=== PATIENT | female | born 2000 | race Caucasian/White ===

== ENCOUNTER 2019-08-11 11:56 | Emergency (ER) | payer SELFPAY ==
[2019-08-11 12:09] VITALS: BP 119/72; PULSE 81; RESP 14; TEMP 37.1; O2SAT 100
--- NOTE | 2019-08-11 12:19 | ED.URI ---
HPI - URI/Sore Throat General Chief Complaint: Upper Respiratory Infection Stated Complaint: Cough/chest congestion Time Seen by Provider: 08/11/19 12:19 Source: patient and RN notes reviewed History of Present Illness HPI Narrative: Patient is a 19-year-old female that presents the urgent care with complaints of cough and congestion for 3-1/2 weeks. Patient states that she initially did use [id number] medication after she was seen on July 19. Patient states she only used it for approximately 1 week and did not have any improvements of symptoms. Patient states she now has some intermittent shortness of breath with cough, left ear pain and runny nose. Denies of any known fever. Denies of fever, chills, nausea, vomiting. No other acute complaints. No acute distress noted. Patient read the plan of care. Related Data Allergies Allergy/AdvReac Type Severity Reaction Status Date / Time No Known Allergies Allergy Verified 08/11/19 12:16 Review of Systems Review of Systems: Narrative: CONSTITUTIONAL: Denies fever, chills, or sweats. EYES: Denies visual changes, redness, or discharge. ENT: Reports of rhinorrhea, congestion, postnasal drainage CARDIOVASCULAR: Denies chest pain, palpitations, or edema. RESPIRATORY: Reports a mild cough with intermittent dyspnea GASTROINTESTINAL: Denies abdominal pain, nausea, vomiting, or diarrhea. GENITOURINARY: Denies dysuria or hematuria. SKIN: Denies rash or itching. MUSCULOSKELETAL: Denies back pain, joint pain, or myalgia. NEUROLOGIC: Denies headache, numbness, or weakness. All other systems reviewed are negative, except as documented in HPI. PMFSH Comments At the time of my signature, I reviewed and agree with the nursing past medical, surgical, social, and family history. There is no relevant family history pertinent to the patient complaint. Exam Narrative: Exam Narrative: GENERAL: This is a well-nourished, well-developed patient, in no apparent distress. HEAD: normocephalic, atraumatic. Mild frontal sinus tenderness EYES: PERRL. Sclera clear/white. Vision is grossly intact. EARS: External ears normal, auditory canals clear and without drainage, TMs normal without perforation. Hearing grossly intact. NOSE: External nose normal with no obvious nasal discharge, nares without redness, clear rhinorrhea THROAT: Mucous membranes moist, posterior pharynx clear. Moderate postnasal drainage NECK: Neck supple, non-tender without lymphadenopathy, masses or thyromegaly. CARDIOVASCULAR: Regular rate and rhythm without murmurs, gallops, or rubs. RESPIRATORY: Clear to auscultation. Breath sounds equal bilaterally. No wheezes, rales, or rhonchi. SKIN: warm, intact with no suspicious lesions or rash, good texture and turgor. NEURO: awake, alert, and oriented to person, place and time. There were no obvious focal neurologic abnormalities. EXTREMITIES: No clubbing, cyanosis, or edema. Course Vital Signs Vital signs: Vital Signs Temperature 98.7 F 08/11/19 12:09 Pulse Rate 81 08/11/19 12:09 Respiratory Rate 14 08/11/19 12:09 Blood Pressure 119/72 08/11/19 12:09 Pulse Oximetry 100 08/11/19 12:09 Temperature 98.7 F 08/11/19 12:09 Pulse Rate 81 08/11/19 12:09 Respiratory Rate 14 08/11/19 12:09 Blood Pressure 119/72 08/11/19 12:09 Pulse Oximetry 100 08/11/19 12:09 Reviewed MDM - URI/Sore Throat MDM Narrative Medical decision making narrative: Advised patient to continue using Flonase and Claritin [id number]. Complete steroid regimen as prescribed. Complete antibiotic regimen as prescribed. If you are not getting any relief from the antibiotic by day 5, stop the medication but continue the steroid and Flonase/Claritin. Increase fluids and rest. Follow-up with PCP within 2 to 5 days if worsening symptoms or failure to improve. Differential Diagnosis Differential diagnosis: Likely upper respiratory infection, otitis media, sinusitis, viral infection, bronchi
== END 2019-08-11 12:37 | disposition home or self-care (01) ==
PROVIDERS: Emergency Provider Nurse Practitioner Family
DX: J32.9 Chronic sinusitis, unspecified (principal)
CPT/HCPCS: 99213; G0463